=== PATIENT | female | born 1985 | race Caucasian/White ===

== ENCOUNTER 2016-08-25 03:39 | Emergency (ER) | payer MEDICAID ==
[~2016-08-25] VITALS: Ht 144.8 cm; Wt 73.5 kg
--- NOTE | 2016-08-25 04:48 | PD ---
HPI Travel History International Travel<30 Days: No Contact w/Intl Traveler<30Days: No Known Affected Area: No History of Present Illness HPI This patient is a 31-year-old 3 para 2 EDC is August 26, 2016 presently at 39 weeks and 6 days she presents the chief complaint of pressure irregular contractions no ruptured membranes no vaginal bleeding care with Bev Brown denies any problems she states that her blood sugar was a little elevated. Group B strep is negative one-hour Glucola of 136 blood type is O+ hepatitis negative RPR-negative HIV-negative rubella immune sickle cell screen negative ultrasound April 12, 2016 at 20 weeks and 4 days EDC equals August 26 History Past Medical History Narrative Medical No known drug allergies no major medical problems Obstetric History Obstetric History First baby born August 2004 female weight 7 lbs. 11 oz. vaginal delivery Second baby born September 2007 female infant weight 7 lbs. 14 oz. vaginal delivery Past Surgical History Surgical History: No Previous Surgery Family History Family History: Negative Social History Alcohol Use: No Tobacco Use: No Substance Abuse: No Allergies-Medications (Allergen,Severity, Reaction): Coded Allergies: No Known Allergies (Unverified , 08/25/16) Comments No known drug allergies Review of Systems Gastrointestinal: Abdominal Pain (regular uterine contractions) Physical Exam Narrative GENERAL: Well-nourished, well-developed patient. Alert oriented 3 and cooperative in no acute distress secondary to uterine contractions CARDIOVASCULAR: Regular rate and rhythm without murmurs, gallops, or rubs. RESPIRATORY: Breath sounds equal bilaterally. No accessory muscle use. ABDOMEN/GI: Gravid term estimated weight of 7 pounds Gravid to [-] weeks size term Fundal Height: [-] GENITOURINARY: External Genitalia: intact and normal in appearance BUS glands: [-] Cervix: [-] Slightly posterior Dilatation: [-] 2 cm Effacement: [-] 50% effaced Station: [-] -2 station Presentation: [-] Vertex Membranes: [intact Uterine Contractions: [-] Every 2 minutes FHT's: Category: [-] 1 Baseline: [-] 140 Reactive: [-] + Accelerations to 165 Variability: [-] Moderate [id number] variability Decels: [-] 0 EXTREMITIES: No cyanosis or edema. 2+ reflexes NEUROLOGICAL: Awake and alert. Motor and sensory grossly within normal limits. Five out of 5 muscle strength in all muscle groups. Normal speech. Data Data Vital Signs Reviewed: Yes (blood pressure 125/78 pulse 74 temp 98.3 respiration 18) Labs Bedside ultrasound BPD is 8.17 equaling 32 weeks and 6 days Large pocket of 7.7 cm Anterior grade 2 placenta no abruption MDM Medical Record Reviewed: Yes Interpretation(s) 31-year-old 3 para 2 at 39 weeks 6 days Early latent phase Category 1 tracing Narrative Course / MDM Patient reexamined no cervical change Contractions spaced out Category 1 tracing We'll discharge patient home She lives 10 minutes from the hospital Instructions on when to return kick counts If the contractions stopped she is to keep her next appointment Plan External monitoring By mouth fluid hydration Observation over the next hour and reevaluation Diagnosis Diagnosis: Primary Impression: Irregular contractions Additional Impression: 39 weeks gestation of Disposition: 01 DISCHARGE HOME Condition: Stable Macey Hernandez MD Aug 25, 2016 04:48
== END 2016-08-25 06:00 | disposition home or self-care (01) ==
LOC: HOBED 03:39
DX: O47.1 False labor at or after 37 completed weeks of gestation (principal); Z3A.39 39 weeks gestation of pregnancy
CPT/HCPCS: 59025

== ENCOUNTER 2016-08-26 05:46 | Inpatient (IN) | payer MEDICAID ==
[~2016-08-26] VITALS: Ht 144.8 cm; Wt 72.6 kg
[2016-08-26] MEDS ORDERED: LACTATED RINGER'S 1000 ML INJ 1,000 ML IV SCH (06:28)
[2016-08-26] MEDS ORDERED: LACTATED RINGER'S 1000 ML INJ 1,000 ML IV PRN (06:28)
--- NOTE | 2016-08-26 06:28 | PD ---
HPI Chief Complaint Contractions Date Seen: Aug 26, 2016 Travel History International Travel<30 Days: No Contact w/Intl Traveler<30Days: No Known Affected Area: No History of Present Illness HPI The patient is 31-year-old GE 3 P2 40 weeks and 6 days presents in active labor. Cervix is 6 cm 80% -2 intact membranes, heart rate tracing is nonreactive at the time of admission with no decelerations just rather flat tracing Para: 2 : 3 History Obstetric History Obstetric History 2 vaginal deliveries Family History Family History: Negative Social History Alcohol Use: No Tobacco Use: No Substance Abuse: No Allergies-Medications (Allergen,Severity, Reaction): Coded Allergies: No Known Allergies (Unverified , 08/25/16) Review of Systems General / Constitutional: No: Fever, Weight Gain, Chills, Other Eyes: No: Diploplia, Blurred Vision, Visual changes, Pain, Photophobia HENT: No: Headaches, Vertigo, Lightheadedness Cardiovascular: No: Irregular Rhythm, Chest Pain or Discomfort, Palpitations, Tachycardia, Syncope, Varicosities, Edema, Cyanosis Respiratory: No: Cough, Short of Breath, Other Gastrointestinal: No: Nausea, Vomiting, Diarrhea Genitourinary: No: Decreased Urinary Output, Oliguria Musculoskeletal: No: Limited ROM, Weakness, Cramping, Edema, Pain Skin: No Rash, No Itching, No Dryness, No Lumps, No Change in Pigmentation, No Change in Nails, No Alopecia, No Lesions Neurologic: No: Weakness, Dizziness, Syncope, Focal Abnormalities, Coordination Problem, Headache, Slurred Speech, Seizures Psychiatric: No: Depression, Suicidal Ideations, Homicidal Ideation Endocrine: No: Heat Intolerance, Cold Intolerance, Polydipsia, Polyuria, Other Physical Exam Narrative GENERAL: Well-nourished, well-developed patient. SKIN: Warm and dry. HEAD: Normocephalic and atraumatic. EYES: No scleral icterus. No injection or drainage. ENT: No nasal drainage noted. Mucous membranes pink. Airway patent. NECK: Supple, trachea midline. No JVD. CARDIOVASCULAR: Regular rate and rhythm without murmurs, gallops, or rubs. RESPIRATORY: Breath sounds equal bilaterally. No accessory muscle use. BREASTS: Bilateral exam showed no masses , no retractions, no nipple discharge. ABDOMEN/GI: Abdomen soft, non-tender, bowel sounds present, no rebound, no guarding Gravid to [40-] weeks size Fundal Height: [38 cm-] GENITOURINARY: External Genitalia: intact and normal in appearance BUS glands: [-] Cervix: [-] Dilatation: [-6] Effacement: [-] 80% Station: [-2] Presentation: [vtx-] Membranes: [intact ] Uterine Contractions: [reg-] FHT's: Category: [1-] Baseline: [133-] Reactive: [no-] Variability: [mod-] Decels: [-no] EXTREMITIES: No cyanosis or edema. BACK: Nontender without obvious deformity. No CVA tenderness. NEUROLOGICAL: Awake and alert. Motor and sensory grossly within normal limits. Five out of 5 muscle strength in all muscle groups. Normal speech. Data Data Orders Ob (2e) Additional Admit Info (08/26/16 06:13) [facility] Medical Record Reviewed: No Interpretation(s) This patient is a 31-year-old at 40 weeks and 6 days presents in active labor with regular contractions that are painful cervix is 6 cm dilated with intact membranes, heart rate tracing is nonreactive at this time there are no decelerations the tracing is just rather flat with moderate variability. Patient sees Bev Brown licensed midwife for care, and her records are available and she is GBS negative Plan Plan to admit the patient for labor management and anticipate vaginal delivery Diagnosis Diagnosis: Primary Impression: Abdominal pain during in third trimester Juan Cortez II, MD Aug 26, 2016 06:28
[2016-08-26] MEDS ORDERED: CITRIC ACID-SODIUM CITRATE LIQ 30 ML UDC PO SCH (06:30)
[2016-08-26] MEDS ORDERED: SODIUM CHLORID 0.9% 500 ML INJ 500 ML IV PRN (06:30)
[2016-08-26] MEDS ORDERED: MINERAL OIL 10 ML VIAL TOPICAL PRN (06:30)
[2016-08-26] MEDS ORDERED: LIDOCAINE HCL 1% 50 ML VIAL I-DERMAL PRN (06:30)
[2016-08-26] MEDS ORDERED: OXYTOCIN 30 UNITS-500ML PREMIX 500 ML IV ONE (06:30)
[2016-08-26] MEDS ORDERED: LIDOCAINE HCL 1% 50 ML VIAL INFIL PRN (06:30)
[2016-08-26] MEDS ORDERED: SODIUM CHLOR 0.9% 1000 ML INJ 1,000 ML IV PRN (06:48)
--- NOTE | 2016-08-26 06:55 | HHI.HP ---
HPI Date Seen: Aug 26, 2016 Travel History International Travel<30 Days: No Contact w/Intl Traveler<30Days: No Known Affected Area: No History of Present Illness HPI Mrs. Chester is a 31 yo F at 40 6/7 weeks who presents with complaint of contractions. Patient states that she began feeling contractions at ~0000 ; patient reports that they have gradually increased in severity over the past several hours. Patient denies loss of vaginal fluid. Patient reports vaginal spotting since onset of contractions. No reported abdominal pain between contractions. Patient does not report shortness of breath, leg swelling , chest pain, dysuria, or other symptoms at this time. Patient reports that she received care with [facility]; patient denies complications. Patient specifically denies abnormalities on ultrasound, gestational diabetes, and gestational hypertension. Patient reportedly GBS negative. Para: 2 : 3 History Past Medical History Medical History: Denies Significant Hx Obstetric History Obstetric History Past Surgical History Surgical History: No Previous Surgery Family History Family History: Negative Social History Alcohol Use: No Tobacco Use: No Substance Abuse: No Allergies-Medications (Allergen,Severity, Reaction): Coded Allergies: No Known Allergies (Unverified , 08/25/16) Review of Systems General / Constitutional: No: Fever, Chills HENT: No: Headaches Cardiovascular: No: Chest Pain or Discomfort Respiratory: No: Short of Breath Gastrointestinal: No: Nausea, Vomiting Genitourinary: No: Urgency Skin: No Rash Physical Exam Narrative BP 124/76 HR 71 GENERAL: No acute distress SKIN: No visible lesions EYES: No scleral icterus. No injection or drainage. ENT: No nasal drainage noted. Mucous membranes pink. Airway patent. CARDIOVASCULAR: Regular rate and rhythm without murmurs to auscultation RESPIRATORY: Normal rate; clear to auscultation bilaterally ABDOMEN/GI: Abdomen soft, non-tender, bowel sounds present, no rebound, no guarding Gravid EXTREMITIES: No LE edema. NEUROLOGICAL: Awake and alert. Motor and sensory function grossly within normal limits. GENITOURINARY: Performed by nursing staff External Genitalia: intact and normal in appearance Cervix: Dilatation: 6-7 cm Effacement: 80% Station: 0 Presentation: V Membranes: Intact Uterine Contractions: q3min FHT's: Category: 1 Baseline: 140 Reactive: Y Variability: Moderate Decels: None Data Data Orders Ob (2e) Additional Admit Info (08/26/16 06:13) Admit To Inpatient (08/26/16 ) Vital Signs (Adult) .Per protocol (08/26/16 06:28) ^ Heart (08/26/16 06:28) ^ Amnioinfusion (08/26/16 06:28) Urinary Catheter Management .ONCE (08/26/16 06:28) Diet Liquid (08/26/16 Breakfast) Lactated Ringer's 1000 Ml Inj (Lr 1000 M (08/26/16 06:28) Lactated Ringer's 1000 Ml Inj (Lr 1000 M (08/26/16 06:28) Sodium Chlorid 0.9% 500 Ml Inj (Ns 500 M (08/26/16 06:30) Sodium Chlor 0.9% 1000 Ml Inj (Ns 1000 M (08/26/16 06:48) Lidocaine 1% Inj (50 Ml) (Xylocaine 1% I (08/26/16 06:30) Citric Acid-Sodium Citrate Liq (Bicitra (08/26/16 06:30) Fentanyl Inj (Fentanyl Inj) (08/26/16 06:30) Fentanyl Inj (Fentanyl Inj) (08/26/16 06:30) Complete Blood Count With Diff (08/26/16 06:28) Hold Clot (08/26/16 06:28) Abo/Rh Blood Type (08/26/16 06:28) Urinalysis - C+S If Indicated (08/26/16 06:28) Resp Oxygen Non Rebreathe Mask (08/26/16 ) ^ Epidural / Intrathecal Infus (08/26/16 06:28) Oxytocin 30 Units-500ml Premix (Pitocin (08/26/16 06:30) Lidocaine 1% Inj (50 Ml) (Xylocaine 1% I (08/26/16 06:30) Light Mineral Oil (Muri-Lube Oil) (08/26/16 06:30) Specimen To Be Collected PRN (08/26/16 06:28) Assessment/Plan Problem List: (1) 40 weeks gestation of Assessment and Plan Impression: Category 1 rhythm Active labor contractions q3 min GBS- Review of records: HIV, Hep B negative Plan: -Will admit for active labor -Will obtain CBC, blood typing, Hold clot, UA -Epidural Franicsco Acuña MD R2 Aug 26, 2016 06:55
[2016-08-26 07:07] LABS: AUTOMATED NEUTROPHIL # 5.9 TH/MM3 (1.8-7.7); BASOPHIL # 0.1 TH/MM3 (0-0.2); BASOPHIL % 0.8 % (0.0-2.0); EOSINOPHIL % 0.6 % (0.0-4.0); HEMATOCRIT 41.9 % (35.0-46.0); HEMO FLAGS DIFF FINAL; LYMPH % 19.8 % (9.0-44.0); LYMPHOCYTE # 1.6 TH/MM3 (1.0-4.8); MEAN CELL VOLUME 85.1 FL (80.0-100.0); MEAN CORPUSCULAR HEMOGLOBIN 29.3 PG (27.0-34.0); MEAN CORPUSCULAR HGB CONC 34.4 % (32.0-36.0); MONO % 7.1 % (0.0-8.0); NEUT % 71.7 % (16.0-70.0); PLATELET COUNT 138 TH/MM3 (150-450); RED BLOOD COUNT 4.93 MIL/MM3 (4.00-5.30); RED CELL DISTRIBUTION WIDTH 14.9 % (11.6-17.2); WHITE BLOOD COUNT 8.3 TH/MM3 (4.0-11.0)
[2016-08-26] MEDS ORDERED: ePHEDrine/NS 25 MG/5 ML SYR ONE (07:14)
[2016-08-26] MEDS ORDERED: fentaNYL 2MCG-BUPIV 0.125% INJ 100 ML ONE (07:14)
[2016-08-26 07:40] LABS: BACTERIA, URINE OCC /hpf; BLOOD, URINE MOD (NEG); COMMENT (UR) CULT NOT INDICATED; CULTURE IF INDICATED CULT NOT INDICATED; GLUCOSE,URINE NEG (NEG); KETONE, URINE NEG (NEG); MUCUS URINE FEW /lpf (OCC); NITRITE,URINE NEG (NEG); PH, URINE 6.5 (5.0-8.5); SQUAMOUS EPITHELIAL CELL URINE 1 /hpf (0-5); URINE COLOR YELLOW (YELLW/STRAW)
[2016-08-26] MEDS ORDERED: DO NOT ADMINISTER ANTICOAGULANTS XX PRN (07:45)
[2016-08-26] MEDS ORDERED: ePHEDrine/NS 50 MG/5 ML SYR IV PRN (07:45)
[2016-08-26] MEDS ORDERED: NO SYSTEM NARCOTICS XX PRN (07:45)
[2016-08-26] MEDS ORDERED: fentaNYL 2MCG-BUPIV 0.125% INJ 100 ML EPIDURAL SCH (07:45)
[2016-08-26] MEDS ORDERED: BENZOCAINE 20% TOPICAL SPRAY 60 ML CAN TOPICAL PRN (09:15)
[2016-08-26] MEDS ORDERED: ALUMINUM/MAGNESIUM/SIMETH 30 ML CUP PO PRN (09:15)
[2016-08-26] MEDS ORDERED: oxyCODONE/ACETAMINOPHEN 5 MG/325 MG TAB PO PRN ×2 (09:15)
[2016-08-26] MEDS ORDERED: ACETAMINOPHEN 325 MG TAB PO PRN (09:15)
[2016-08-26] MEDS: SODIUM CHLORIDE 0.9% FLUSH 5 ML FLUSH IV SCH (09:15)
[2016-08-26] MEDS ORDERED: DOCUSATE SODIUM 50 MG/SENNA 8.6 MG TAB PO PRN (09:15)
[2016-08-26] MEDS ORDERED: PETROLEUM/SHARK LIVER OIL 60 GM TUBE RECTAL PRN (09:15)
[2016-08-26] MEDS ORDERED: WITCH HAZEL 50%/GLYCERIN 12.5% 40 PAD JAR TOPICAL PRN (09:15)
[2016-08-26] MEDS ORDERED: ONDANSETRON ODT 4 MG TAB PO PRN (09:15)
[2016-08-26] MEDS ORDERED: SODIUM CHLORIDE 0.9% FLUSH 5 ML FLUSH IV PRN (09:15)
[2016-08-26] MEDS ORDERED: CALCIUM CARBONATE 500 MG CHEWABLE TAB CHEW PRN (09:15)
--- NOTE | 2016-08-26 09:20 | PD.OB.DELI ---
Delivery Date: Aug 26, 2016 Anesthesia: Epidural Episiotomy: None Vaginal Delivery: Normal Presentation: Occiput anterior Nuchal Cord: None Delayed cord clamping (45 sec): No Shoulder Dystocia: Suprapubic pressure given, Shanae maneuver done : Male One Minute : 8 Five Minute : 9 Weight: [id number] Infant Care: Suctioned, Spontaneous crying, Responded to stimulation Placenta: Spontaneous delivery, Intact, 3 vessel cord Laceration: 1 deg Additional Information Delivery by Dr. Meneses, assisted by Dr. Pena. Attending Dr. Cortez. Mild shoulder dystocia of L shoulder, delivered with suprapubic pressure and Shanae. Jessica Pena MD R1 Aug 26, 2016 09:20
--- NOTE | 2016-08-26 09:28 | PD.LABORPN ---
Subjective Subjective attending delivery note Pt delivered over 1 deg perineal laceration , mild shoulder dystocia noted and relieved by suprapubic pressure , baby did well no sign of Erbs palsey , wt 3955 8/9 cord blood obtained , placenta out spontaneously intact , EBL 100 cc , mother and baby did well , delivery done with [facility] residents Objective Objective Assessment/Plan Problem List: (1) 40 weeks gestation of Juan Cortez II, MD Aug 26, 2016 09:28
[2016-08-26] MEDS ORDERED: OXYTOCIN 30 UNITS-500ML PREMIX 500 ML IV PRN (10:15)
[2016-08-26] MEDS: IBUPROFEN 600 MG TAB PO PRN (10:42)
[2016-08-26 10:45] VITALS: BP 110/78; PULSE 68
[2016-08-26 11:01] VITALS: BP 110/67; PULSE 77
[2016-08-26 12:00] VITALS: BP 116/65; PULSE 76; RESP 16; TEMP 98.4
[2016-08-26] MEDS ORDERED: MEASLES, MUMPS, RUBELLA VACCINE 0.5 ML VIAL SQ ONE (16:00)
[2016-08-26] MEDS ORDERED: DIPHTH/TETANUS/ACEL PERTUSSIS (BOOSTER) 0.5 ML VIAL/PFS IM ONE (16:00)
[2016-08-26] MEDS ORDERED: MELATONIN 5 MG TAB PO PRN (21:00)
[2016-08-26] MEDS ORDERED: ZOLPIDEM TARTRATE 5 MG TAB PO PRN (21:00)
[2016-08-27] MEDS: IBUPROFEN 600 MG TAB PO PRN (00:04)
[2016-08-27] MEDS ORDERED: oxyCODONE/ACETAMINOPHEN 5 MG/325 MG TAB PO ONE (07:30)
--- NOTE | 2016-08-27 08:07 | HHI.OB ---
Subjective Post Day: 1 Remarks Patient is doing well this morning. She is having some abdominal pain and has only been taking Motrin for it. Her vaginal bleeding is within normal limits and less than yesterday. She is ambulating and voiding without difficulty. No fever, chills, shortness of breath. No chest pain. She is breast-feeding. ( Quincy Meneses MD R2) Objective Vitals/I&O Vital Signs Date Time Temp Pulse Resp B/P Pulse Ox O2 Delivery O2 Flow Rate FiO2 08/26/16 12:00 98.4 16 08/26/16 12:00 76 116/65 08/26/16 11:01 77 110/67 08/26/16 10:45 68 110/78 Objective Remarks GENERAL: Well-nourished, well-developed patient. CARDIOVASCULAR: Regular rate and rhythm without murmurs, gallops, or rubs. RESPIRATORY: Breath sounds equal bilaterally. No accessory muscle use. ABDOMEN/GI: Abdomen soft, non-tender. Fundus: Firm, non-tender at umbilicus. GENITOURINARY: Light to moderate bleeding. EXTREMITIES: No cyanosis or edema, non-tender, without signs of DVT. Medications and IVs Current Medications Medications (Trade) Dose Ordered Sig/Katja Route Start Time Stop Time Status Last Admin Sodium Chloride 1,000 ml @ 100 mls/hr Q10H PRN IV 08/26/16 06:48 (fentaNYL 2MCG-BUPIV 0.125% INJ) 100 ml @ 0 mls/hr TITRATE EPIDURAL 08/26/16 07:45 08/26/16 10:01 (NS Flush) 2 ml BID IV 08/26/16 09:15 (NS Flush) 2 ml UNSCH PRN IV 08/26/16 09:15 (Tylenol) 650 mg Q4H PRN PO 08/26/16 09:15 (Motrin) 600 mg Q6H PRN PO 08/26/16 09:15 08/27/16 00:04 (Percocet 5-325 Mg) 1 tab Q4H PRN PO 08/26/16 09:15 (Percocet 5-325 Mg) 2 tab Q4H PRN PO 08/26/16 09:15 (Americaine 20% Top Spr) 1 spray Q4H PRN TOPICAL 08/26/16 09:15 (Tucks Pads) 1 applic QID PRN TOPICAL 08/26/16 09:15 (Sarah Beth-Colace) 2 tab Q12H PRN PO 08/26/16 09:15 (Ambien) 5 mg HS PRN PO 08/26/16 21:00 (Mag-Al Plus Susp Liq) 15 ml Q8H PRN PO 08/26/16 09:15 (Zofran Odt) 4 mg Q6H PRN PO 08/26/16 09:15 (Tums Chew) 500 mg Q6HR PRN CHEW 08/26/16 09:15 (Melatonin) 2.5 mg HS PRN PO 08/26/16 21:00 (Miralax) 17 gm DAILY PO 08/27/16 09:00 (Preparation H Oint) 1 applic Q4HR PRN RECTAL 08/26/16 09:15 (Quincy Meneses MD R2) Assessment/Plan Problem List: (1) Vaginal delivery Assessment and Plan 31 year old PPD1 1. Care - AFVSS since delivery - Motrin and Percocet prn pain - Encouraged OOB, as tolerated - Pelvic rest x 6 weeks - Will f/u with care for women in 4-6 weeks - Anticipate d/c tomorrow Discuss with OB hospitalist Discharge Planning Likely tomorrow (Quincy Meneess MD R2) Attestation I have discussed this patient in detail and agree with discharge plans (Anne Franco MD) Quincy Meneses MD R2 Aug 27, 2016 08:07 Anne Franco MD Aug 27, 2016 09:16
[2016-08-27] MEDS ORDERED: POLYETHYLENE GLYCOL 17 GM PKG PO SCH (09:00)
[2016-08-27] MEDS: SODIUM CHLORIDE 0.9% FLUSH 5 ML FLUSH IV SCH (21:00)
[2016-08-28] MEDS: IBUPROFEN 600 MG TAB PO PRN ×2 (03:29→09:25)
[2016-08-28] MEDS ORDERED: SENN1TAB PO (07:23)
[2016-08-28] MEDS ORDERED: OXYC1TAB63 PO (07:23)
[2016-08-28] MEDS ORDERED: IBUP-232 PO (07:23)
--- NOTE | 2016-08-28 07:24 | HHI.DCPOC ---
Discharge Care Plan Diagnosis: (1) Vaginal delivery Report Symptoms to Your Doctor -Temperate above 100.5 degrees -Redness, of incision or excessive or foul smelling drainage -Unusual pain or calf pain -Increased vaginal bleeding -Painful or difficulty urinating -Feelings of extreme sadness or anxiety after 2 weeks Goals to Promote Your Health * To prevent worsening of your condition and complications * To maintain your health at the optimal level Directions to Meet Your Goals Take your medications as prescribed Follow your dietary instruction Follow activity as directed Ensure plenty of rest for recovery Drink fluids for hydration Keep your appointments as scheduled Take your immunizations and boosters as scheduled If your symptoms worsen call your PCP, if no PCP go to Urgent Care Center or Emergency Room Smoking is Dangerous to Your Health. Avoid second hand smoke Call the 24-hour crisis hotline for domestic abuse at Quincy Meneses MD R2 Aug 28, 2016 07:24
--- NOTE | 2016-08-28 08:19 | HHI.OB ---
Subjective Post Day: 2 Remarks Patient is doing well this morning. She is ambulating and voiding without difficulty. Her vaginal bleeding is roughly the same amount as yesterday. Her pain is controlled with medications. She is breast-feeding. No chest pain, shortness of breath, fever, chills. Objective Objective Remarks GENERAL: Well-nourished, well-developed patient. CARDIOVASCULAR: Regular rate and rhythm without murmurs, gallops, or rubs. RESPIRATORY: Breath sounds equal bilaterally. No accessory muscle use. ABDOMEN/GI: Abdomen soft, non-tender. Fundus: Firm, non-tender at umbilicus. GENITOURINARY: Light to moderate bleeding. EXTREMITIES: No cyanosis or edema, non-tender, without signs of DVT. Medications and IVs Current Medications Medications (Trade) Dose Ordered Sig/Katja Route Start Time Stop Time Status Last Admin Sodium Chloride 1,000 ml @ 100 mls/hr Q10H PRN IV 08/26/16 06:48 (fentaNYL 2MCG-BUPIV 0.125% INJ) 100 ml @ 0 mls/hr TITRATE EPIDURAL 08/26/16 07:45 08/26/16 10:01 (NS Flush) 2 ml BID IV 08/26/16 09:15 (NS Flush) 2 ml UNSCH PRN IV 08/26/16 09:15 (Tylenol) 650 mg Q4H PRN PO 08/26/16 09:15 (Motrin) 600 mg Q6H PRN PO 08/26/16 09:15 08/28/16 03:29 (Percocet 5-325 Mg) 1 tab Q4H PRN PO 08/26/16 09:15 (Percocet 5-325 Mg) 2 tab Q4H PRN PO 08/26/16 09:15 (Americaine 20% Top Spr) 1 spray Q4H PRN TOPICAL 08/26/16 09:15 (Tucks Pads) 1 applic QID PRN TOPICAL 08/26/16 09:15 (Sarah Beth-Colace) 2 tab Q12H PRN PO 08/26/16 09:15 (Ambien) 5 mg HS PRN PO 08/26/16 21:00 (Mag-Al Plus Susp Liq) 15 ml Q8H PRN PO 08/26/16 09:15 (Zofran Odt) 4 mg Q6H PRN PO 08/26/16 09:15 (Tums Chew) 500 mg Q6HR PRN CHEW 08/26/16 09:15 (Melatonin) 2.5 mg HS PRN PO 08/26/16 21:00 (Miralax) 17 gm DAILY PO 08/27/16 09:00 (Preparation H Oint) 1 applic Q4HR PRN RECTAL 08/26/16 09:15 Assessment/Plan Problem List: (1) Vaginal delivery Assessment and Plan 31 year old PPD2 1. Care - AFVSS since delivery - Motrin and Percocet prn pain - Encouraged OOB, as tolerated - Pelvic rest x 6 weeks - Will f/u with care for women in 4-6 weeks - Anticipate d/c today Discuss with OB hospitalist Discharge Planning Today Quincy Meneses MD R2 Aug 28, 2016 08:19
== END 2016-08-28 10:17 | disposition home or self-care (01) | DRG 775 ==
LOC: HOBED 05:46 → H2EB 06:15 → H1EA 11:41
PROVIDERS: ADMIT Obstetrics & Gynecology Maternal & Fetal Medicine; ATTEND Obstetrics & Gynecology Maternal & Fetal Medicine
PROC: 0HQ9XZZ Repair Perineum Skin, External Approach (ICD-10-PCS; principal; 2016-08-26)
PROC: 10E0XZZ Delivery of Products of Conception, External Approach (ICD-10-PCS; 2016-08-26)
PROC: 3E0R3CZ (ICD-10-PCS; 2016-08-26)
PROC: 00HU33Z Insertion of Infusion Device into Spinal Canal, Percutaneous Approach (ICD-10-PCS; 2016-08-26)
DX: O66.0 Obstructed labor due to shoulder dystocia (principal); O70.0 First degree perineal laceration during delivery; Z37.0 Single live birth; Z3A.40 40 weeks gestation of pregnancy
CPT/HCPCS: 59025; 81001; 85025; 86900; 86901; 90715; J2590